=== PATIENT | male | born 1960 | race Caucasian/White ===

== ENCOUNTER 2018-06-26 12:02 | Emergency (ER) | payer SELFPAY ==
--- NOTE | 2018-06-26 12:44 | ER ---
Nurse's Notes [facility] Name: Jacinto Ayala Age: 57 yrs Sex: Male : 1960 Arrival Date: 06/26/2018 Time: 12:10 Bed 23 Private MD: None, None Diagnosis: Pain in foot and toes Presentation: 06/26 12:17 Presenting complaint: Patient states: pain to bottom of feet x 1 week ago. Pt states aa5 "the right foot hurts worse". Transition of care: patient was not received from another setting of care. Onset of symptoms was June 2018. Risk Assessment: Do you want to hurt yourself or someone else? Patient reports no desire to harm self or others. Initial Sepsis Screen: Does the patient meet any 2 criteria? No. Patient's initial sepsis screen is negative. Does the patient have a suspected source of infection? No. Patient's initial sepsis screen is negative. Care prior to arrival: None. 12:17 Method Of Arrival: Ambulatory aa5 12:17 Acuity: LYNN 5 aa5 Historical: - Allergies: 12:17 No Known Allergies; aa5 - PMHx: 12:17 Hypertension; aa5 - PSHx: 12:17 None; aa5 - Immunization history:: Flu vaccine is not up to date. - Social history:: Smoking status: Patient/guardian denies using tobacco, Patient/guardian denies using alcohol, street drugs, The patient lives with family. - Ebola Screening: : No symptoms or risks identified at this time. - Family history:: not pertinent. Screenin:26 Abuse screen: Denies threats or abuse. Denies injuries from another. Nutritional aj screening: No deficits noted. Tuberculosis screening: No symptoms or risk factors identified. Fall Risk None identified. Assessment: 12:26 General: Appears in no apparent distress. comfortable, Behavior is calm, cooperative, aj appropriate for age. Pain: Complains of pain in right foot and left foot Pain began 1 week ago. Neuro: Level of Consciousness is awake, alert, obeys commands, Oriented to person, place, time, situation, Appropriate for age paresthesias in right foot and left foot. Respiratory: Airway is patent Respiratory effort is even, unlabored, Respiratory pattern is regular, symmetrical. Derm: Skin is intact, is healthy with good turgor, Skin is pink, warm \\T\\ dry. normal. Vital Signs: 12:18 BP 125 / 70; Pulse 84; Resp 16 S; Temp 97.0(TE); Pulse Ox 94% on R/A; Weight 117.93 kg aa5 (R); Height 5 ft. 8 in. (172.72 cm) (R); Pain 8/10; 12:18 Body Mass Index 39.53 (117.93 kg, 172.72 cm) aa5 ED Course: 12:10 Patient arrived in ED. mr 12:11 None, None is Private Physician. mr 12:17 Triage completed. aa5 12:17 Arm band placed on Patient placed in an exam room, on a stretcher. aa5 12:20 Yves Guardado MD is Attending Physician. ma2 12:26 Faby Romero, RN is Primary Nurse. aj 12:26 Patient has correct armband on for positive identification. Bed in low position. aj 12:52 No provider procedures requiring assistance completed. Patient did not have IV access aj during this emergency room visit. Administered Medications: No medications were administered Outcome: 12:43 Discharge ordered by . ma2 12:52 Discharged to home ambulatory. aj 12:52 Condition: good 12:52 Discharge instructions given to patient, Instructed on discharge instructions, follow up and referral plans. medication usage, Demonstrated understanding of instructions, follow-up care, medications, Prescriptions given X 2. 12:54 Patient left the ED. aj Signatures: Faby Romero, RN Concetta Malagon mr RomanIvelisse RN RN [facility] Yves Guardado MD MD [facility]
--- NOTE | 2018-06-26 12:44 | EDPHYS ---
Physician Documentation [facility] Name: Jacinto Ayala Age: 57 yrs Sex: Male : 1960 Arrival Date: 06/26/2018 Time: 12:10 Bed 23 Private MD: None, None ED Physician Yevs Guardado HPI: 06/26 12:37 This 57 yrs old Male presents to ER via Ambulatory with complaints of Foot ma2 Pain. 12:37 The patient presents with pain. The complaints affect the left foot, right foot. ma2 Context: the patient is able to ambulate. Onset: The symptoms/episode began/occurred gradually, 1 week(s) ago. Associated signs and symptoms: Pertinent positives: Pertinent negatives: calf tenderness, nausea, rash, tingling, vomiting, weakness. Severity of symptoms: At their worst the symptoms were mild. The patient has not experienced similar symptoms in the past. Historical: - Allergies: 12:17 No Known Allergies; aa5 - PMHx: 12:17 Hypertension; aa5 - PSHx: 12:17 None; aa5 - Immunization history:: Flu vaccine is not up to date. - Social history:: Smoking status: Patient/guardian denies using tobacco, Patient/guardian denies using alcohol, street drugs, The patient lives with family. - Ebola Screening: : No symptoms or risks identified at this time. - Family history:: not pertinent. ROS: 12:37 MS/extremity: Positive for pain, Negative for injury or acute deformity, abrasion, ma2 contusion, decreased range of motion, paresthesias, rash, swelling, tingling, warmth. 12:37 Constitutional: Negative for fever, chills, and weight loss, Cardiovascular: Negative for chest pain, palpitations, and edema, Respiratory: Negative for shortness of breath, cough, wheezing, and pleuritic chest pain, Abdomen/GI: Negative for abdominal pain, nausea, diarrhea, and constipation, Skin: Negative for injury, rash, and discoloration, Neuro: Negative for headache, weakness, numbness, tingling, and seizure, Endocrine: Negative for neck swelling, polydipsia, polyuria, polyphagia, and marked weight changes. Exam: 12:37 Constitutional: This is a well developed, well nourished patient who is awake, alert, ma2 and in no acute distress. Head/Face: Normocephalic, atraumatic. Chest/axilla: Normal chest wall appearance and motion. Nontender with no deformity. No lesions are appreciated. Cardiovascular: Regular rate and rhythm with a normal S1 and S2. No gallops, murmurs, or rubs. Normal PMI, no JVD. No pulse deficits. Abdomen/GI: Soft, non-tender, with normal bowel sounds. No distension or tympany. No guarding or rebound. No evidence of tenderness throughout. MS/ Extremity: Pulses equal, no cyanosis. Neurovascular intact. Full, normal range of motion. Neuro: Awake and alert, GCS 15, oriented to person, place, time, and situation. Cranial nerves II-XII grossly intact. Motor strength 5/5 in all extremities. Sensory grossly intact. Cerebellar exam normal. Normal gait. Vital Signs: 12:18 BP 125 / 70; Pulse 84; Resp 16 S; Temp 97.0(TE); Pulse Ox 94% on R/A; Weight 117.93 kg aa5 (R); Height 5 ft. 8 in. (172.72 cm) (R); Pain 8/10; 12:18 Body Mass Index 39.53 (117.93 kg, 172.72 cm) aa5 MDM: 12:20 Patient medically screened. ma2 12:37 Differential diagnosis: sprain, arthritis, gout. Differential diagnosis: unlikely frx. ma2 Data reviewed: vital signs, nurses notes. Counseling: I had a detailed discussion with the patient and/or guardian regarding: the historical points, exam findings, and any diagnostic results supporting the discharge/admit diagnosis, the presence of at least one elevated blood pressure reading (>120/80) during this emergency department visit, radiology results, the need for outpatient follow up, to return to the emergency department if symptoms worsen or persist or if there are any questions or concerns that arise at home. Administered Medications: No medications were administered Disposition: 06/26/18 12:43 Discharged to Home. Impression: Pain in foot and toes. - Condition is Stable. - Prescriptions for indomethacin 50 mg Oral capsule - take 1 capsule by ORAL route 2 times per day with food; 30 capsule. Nystatin- Triamcinolone 100,000-0.1 unit/g-% Topical Cream - apply 1 application by TOPICAL route 2 times per day; 1 tube. - Work release form, Medication Reconciliation Form, Thank You Letter, Antibiotic Education, Prescription Opioid Use form. - Follow up: Private Physician; When: Tomorrow; Reason: Continuance of care. - Problem is new. - Symptoms are unchanged. Signatures: Faby Romero RN RN Ivelisse Toro RN RN aa5 Yves Guardado MD MD ma2 Corrections: (The following items were deleted from the chart) 12:54 12:43 06/26/2018 12:43 Discharged to Home. Impression: Pain in foot and toes. Condition aj is Stable. Forms are Medication Reconciliation Form, Thank You Letter, Antibiotic Education, Prescription Opioid Use. Follow up: Private Physician; When: Tomorrow; Reason: Continuance of care. Problem is new. Symptoms are unchanged. ma2
== END 2018-06-26 12:54 | disposition home or self-care (01) ==
LOC: ER 12:02
DX: M79.672 Pain in left foot (principal); M79.671 Pain in right foot; I10 Essential (primary) hypertension
CPT/HCPCS: 99282